=== PATIENT | male | born 1975 | race Caucasian/White ===

== ENCOUNTER 2019-07-22 10:57 | Emergency (ER) | payer SELFPAY ==
[~2019-07-22] VITALS: Ht 162.6 cm; Wt 67.0 kg
[2019-07-22] MEDS ORDERED: MORPHINE SULFATE 4 MG/ML CPJ (NOT FOR IM USE) IV STA (11:25)
[2019-07-22] MEDS ORDERED: ONDANSETRON HCL 4MG/2ML INJ IV STA (11:25)
[2019-07-22] MEDS ORDERED: SODIUM CHLORIDE 0.9% 1,000 ML IV ONE (11:25)
[2019-07-22] MEDS ORDERED: LORAZEPAM 2MG/ML CPJ IV ONE (12:00)
[2019-07-22 13:53] VITALS: BP 109/72
== END 2019-07-22 13:54 | disposition home or self-care (01) ==
LOC: ER 13:18
DX: S43.101A Unspecified dislocation of right acromioclavicular joint, initial encounter (principal); W18.39XA Other fall on same level, initial encounter; Y93.89 Activity, other specified; Y92.89 Other specified places as the place of occurrence of the external cause; Y99.8 Other external cause status
CPT/HCPCS: 73030; 96374; 96375; 99283; J2060; J2270; J2405; J7030; L3670